=== PATIENT | male | born 1960 | race Two or more races ===

== ENCOUNTER 2024-04-07 12:41 | Inpatient (IN) | payer OTHER ==
[~2024-04-07] VITALS: Ht 177.8 cm; Wt 95.2 kg
[2024-04-07 13:44] LABS: Urine Bacteria None Seen /hpf (None Seen)
[2024-04-07 13:55] LABS: Basophils # (auto) 0.1 10 ^3/uL (0-0.2); Basophils % (auto) 0.7 % (0.0-2.0); Eosinophils # (auto) 0.2 10 ^3/uL (0-0.8); Eosinophils % (auto) 2.9 % (0.0-7.0); Hematocrit 45.4 % (41.0-53.0); Hemoglobin 16.1 g/dL (13.5-17.5); Lymphocytes # (auto) 1.9 10 ^3/uL (0.4-5.4); Lymphocytes % (auto) 23.8 % (10.0-50.0); Mean Corpuscular Hemoglobin 31.7 pg (28.0-32.0); Mean Corpuscular Hgb Conc. 35.6 g/dL (32.0-36.0); Mean Corpuscular Volume 89.1 fL (80.0-100.0); Monocytes # (auto) 0.6 10 ^3/uL (0-1.3); Monocytes % (auto) 7.2 % (0.0-12.0); Neutrophils # (auto) 5.1 10 ^3/uL (1.6-8.6); Neutrophils % (auto) 65.4 % (37.0-80.0); Nucleated Red Blood Cells % 0.1 %; Platelet Count (auto) 250 10^3/uL (140-450); Red Cell Distribution Width 13.7 % (11.8-14.3); White Blood Cell 7.8 10^3/uL (4.4-10.8)
[2024-04-07 14:09] LABS: Urine Blood Negative /uL (Negative); Urine Clarity Clear (Clear); Urine Color Yellow (Yellow); Urine Hyaline Cast FEW /lpf (0 - 2); Urine Mucus FEW (None Seen); Urine Protein, UAD TRACE (Negative); Urine Specific Gravity 1.025 (1.001-1.035); Urine Urobilinogen Normal (Negative); Urine WBC 1 /hpf (0 - 3); Urine pH 5.5 (5.0-9.0)
[2024-04-07 14:16] LABS: Alanine Aminotransferase 19 U/L (7-40); Alkaline Phosphatase 116 U/L (46-116); Anion Gap 7 (5-15); Aspartate Aminotransferase 15 U/L (13-40); BUN/Creatinine Ratio 9.2 (10.0-20.0); Blood Urea Nitrogen 11 mg/dL (9-23); Calcium 9.6 mg/dL (8.7-10.4); Carbon Dioxide 25 mmol/L (20-31); Chloride 110 mmol/L (98-107); Glucose 117 mg/dL (74-106); Potassium 4.1 mmol/L (3.5-5.1); Sodium 142 mmol/L (136-145)
[2024-04-07 14:17] LABS: Albumin 4.7 g/dL (3.2-4.8); Bilirubin, Total 1.2 mg/dL (0.2-1.0); Total Protein 7.3 g/dL (5.7-8.2)
[2024-04-07 17:52] VITALS: PULSE 59; RESP 14; O2SAT 95
[2024-04-07] MEDS: SODIUM CHLORIDE 0.9% 1,000 ML IV ONE ×2 (18:03→23:03)
[2024-04-07] MEDS: MORPHINE SULFATE 4 MG/ML SYR/VIAL IV ONE (18:05)
[2024-04-07] MEDS: ONDANSETRON HCL 4 MG/2 ML VIAL IV ONE (18:06)
[2024-04-07] MEDS: KETOROLAC TROMETH 30 MG/ML 1ML VIAL IV ONE (18:06)
[2024-04-07] MEDS ORDERED: ACETAMINOPHEN 500 MG TAB PO PRN (21:30)
[2024-04-07] MEDS ORDERED: ONDANSETRON HCL 4 MG/2 ML VIAL IV PRN (21:30)
[2024-04-07] MEDS ORDERED: hydrALAZINE HCL 20 MG/ML VL IV PRN (21:30)
[2024-04-07] MEDS: LISINOPRIL 5 MG TAB PO ONE (21:30)
[2024-04-07] MEDS ORDERED: KETOROLAC TROMETH 30 MG/ML 1ML VIAL IV PRN (21:30)
[2024-04-07 21:54] LABS: Amphetamine Screen, Urine Neg (NEGATIVE); Barbiturate Scree,Urine Neg (NEGATIVE); Benzodiazephine Screen, Urine Neg (NEGATIVE); Cannabinoid Screen, Urine Neg (NEGATIVE); Cocaine Screen, Urine Neg (NEGATIVE); Opiate Scree,Urine Neg (NEGATIVE); Phencyclidine Screen, Urine Neg (NEGATIVE)
[2024-04-07 22:52] LABS: INR 1.16 (0.9-1.15); Partial Thromboplastin Time 27.1 SEC (24.5-34.5); Prothrombin Time 12.2 sec (9.3-11.8)
[2024-04-07] MEDS: TAMSULOSIN HYDROCHLORIDE 0.4 MG CAP PO SCH (23:07)
[2024-04-07] MEDS: GABAPENTIN 300 MG CAP PO SCH (23:07)
[2024-04-07] MEDS: cefTRIAXone 1GM/50ML D5W 50 ML IV SCH (23:44)
[2024-04-07] MEDS: SODIUM CHLORIDE 0.9% 1,000 ML IV SCH (23:50)
[2024-04-08] VITALS: PULSE 55; RESP 14; O2SAT 96
[2024-04-08] MEDS: ERGOCALCIFEROL 50,000 UNIT(1.25MG) CAP PO SCH (00:26)
[2024-04-08 04:52] LABS: Basophils # (auto) 0 10 ^3/uL (0-0.2); Basophils % (auto) 0.5 % (0.0-2.0); Eosinophils # (auto) 0.3 10 ^3/uL (0-0.8); Eosinophils % (auto) 2.9 % (0.0-7.0); Hematocrit 41.8 % (41.0-53.0); Hemoglobin 14.5 g/dL (13.5-17.5); Lymphocytes # (auto) 2.3 10 ^3/uL (0.4-5.4); Lymphocytes % (auto) 25.8 % (10.0-50.0); Mean Corpuscular Hemoglobin 31.3 pg (28.0-32.0); Mean Corpuscular Hgb Conc. 34.8 g/dL (32.0-36.0); Mean Corpuscular Volume 89.9 fL (80.0-100.0); Monocytes # (auto) 0.7 10 ^3/uL (0-1.3); Monocytes % (auto) 8.2 % (0.0-12.0); Neutrophils # (auto) 5.7 10 ^3/uL (1.6-8.6); Neutrophils % (auto) 62.6 % (37.0-80.0); Platelet Count (auto) 206 10^3/uL (140-450); Red Blood Cells 4.65 10^6/uL (4.5-5.90); Red Cell Distribution Width 13.5 % (11.8-14.3)
[2024-04-08 04:57] LABS: Chloride 111 mmol/L (98-107); Sodium 143 mmol/L (136-145)
[2024-04-08 04:58] LABS: Anion Gap 5 (5-15); Carbon Dioxide 27 mmol/L (20-31)
[2024-04-08 05:04] LABS: BUN/Creatinine Ratio 11.7 (10.0-20.0); Blood Urea Nitrogen 13 mg/dL (9-23); Glucose 105 mg/dL (74-106)
[2024-04-08] MEDS: PANTOPRAZOLE 40 MG TAB PO SCH (05:42)
[2024-04-08] MEDS: LISINOPRIL 5 MG TAB PO SCH (09:26)
[2024-04-08 14:37] VITALS: PULSE 85; RESP 18
[2024-04-08 14:50] VITALS: BP 131/74; PULSE 64; RESP 18; TEMP 97.9; O2SAT 97
[2024-04-08] MEDS ORDERED: GABA-339 PO (15:03)
[2024-04-08] MEDS ORDERED: BACL20TA PO (15:03)
[2024-04-08] MEDS ORDERED: CEL100T PO (15:03)
[2024-04-08 17:00] VITALS: BP 104/59; PULSE 55; RESP 18; TEMP 98.1; O2SAT 98
[2024-04-08 20:00] VITALS: PULSE 63; RESP 18
[2024-04-08 22:00] VITALS: BP 105/63; PULSE 84; RESP 18; TEMP 98; O2SAT 97
[2024-04-08] MEDS: SODIUM CHLORIDE 0.9% 1,000 ML IV ONE (22:12)
[2024-04-09 01:00] VITALS: BP 107/63; PULSE 83; RESP 17; TEMP 98.1; O2SAT 96
[2024-04-09 05:00] VITALS: BP 102/60; PULSE 80; RESP 20; TEMP 98; O2SAT 97
[2024-04-09 06:36] LABS: Basophils # (auto) 0.1 10 ^3/uL (0-0.2); Basophils % (auto) 0.8 % (0.0-2.0); Eosinophils # (auto) 0.2 10 ^3/uL (0-0.8); Eosinophils % (auto) 3.3 % (0.0-7.0); Hematocrit 40.8 % (41.0-53.0); Hemoglobin 14.2 g/dL (13.5-17.5); Lymphocytes # (auto) 2.3 10 ^3/uL (0.4-5.4); Lymphocytes % (auto) 30.8 % (10.0-50.0); Mean Corpuscular Hemoglobin 31.3 pg (28.0-32.0); Mean Corpuscular Hgb Conc. 34.9 g/dL (32.0-36.0); Mean Corpuscular Volume 89.6 fL (80.0-100.0); Monocytes # (auto) 0.6 10 ^3/uL (0-1.3); Monocytes % (auto) 8.6 % (0.0-12.0); Neutrophils # (auto) 4.2 10 ^3/uL (1.6-8.6); Neutrophils % (auto) 56.5 % (37.0-80.0); Nucleated Red Blood Cells % 0.2 %; Platelet Count (auto) 206 10^3/uL (140-450); Red Blood Cells 4.55 10^6/uL (4.5-5.90); Red Cell Distribution Width 13.7 % (11.8-14.3); White Blood Cell 7.4 10^3/uL (4.4-10.8)
[2024-04-09 06:39] LABS: Chloride 109 mmol/L (98-107); Potassium 4.3 mmol/L (3.5-5.1); Sodium 141 mmol/L (136-145)
[2024-04-09 06:40] LABS: Anion Gap 5 (5-15); Carbon Dioxide 27 mmol/L (20-31)
[2024-04-09 06:45] LABS: Blood Urea Nitrogen 14 mg/dL (9-23); Glucose 102 mg/dL (74-106)
[2024-04-09 08:00] VITALS: PULSE 56; RESP 18
[2024-04-09] MEDS ORDERED: IOHEXOL 300 MG/ML 100ML BOTTLE IJ ONE (08:41)
[2024-04-09 08:51] VITALS: BP 119/74; PULSE 58; RESP 18; TEMP 97.7; O2SAT 99
[2024-04-09 09:07] LABS: PSA Free 0.69 ng/mL; Prostate Specific Antigen 2.1 ng/mL (0.0-4.0)
[2024-04-09 13:00] VITALS: BP 124/71; PULSE 56; RESP 18; TEMP 97.9; O2SAT 98
[2024-04-09 17:00] VITALS: BP 119/76; PULSE 61; RESP 18; TEMP 98; O2SAT 98
== END 2024-04-09 20:02 | disposition home or self-care (01) | DRG 465 ==
LOC: ER 12:41 → OVERFLOW 21:26 → EAST 04-08 13:50
PROVIDERS: ADMIT Internal Medicine; ATTEND Internal Medicine
DX: N20.0 Calculus of kidney (principal); E55.9 Vitamin D deficiency, unspecified; N28.1 Cyst of kidney, acquired; K57.30 Diverticulosis of large intestine without perforation or abscess without bleeding; N40.0 Benign prostatic hyperplasia without lower urinary tract symptoms; M54.9 Dorsalgia, unspecified; I10 Essential (primary) hypertension; K21.9 Gastro-esophageal reflux disease without esophagitis; Z87.442 Personal history of urinary calculi
CPT/HCPCS: 36415; 71045; 74176; 74177; 76775; 80048; 80053; 80307; 80320; 81001; 82306; 82607; 83036; 84154; 84443; 84550; 85025; 85610; 85730; 93005; 96374; 96375; G0378; J1885; J2405